=== PATIENT | male | born 1945 | race Caucasian/White ===

== ENCOUNTER 2023-03-17 20:21 | Observation (INO) | payer MEDICARE, BC, SELFPAY ==
[2023-03-17] VITALS (21 sets, daily range): BP systolic 129–198; BP diastolic 77–111; PULSE 96–113; RESP 24; TEMP 37.4; O2SAT 88–95
--- NOTE | 2023-03-17 21:01 | CRLHL7_ITS ---
For Patients: As a result of the Cures Act, medical imaging exams and procedure reports are released immediately into your electronic medical record. You may view this report before your referring provider. If you have questions, please contact your health care provider. INDICATION: Fall. TECHNIQUE: CT cervical spine without contrast. COMPARISON: None. FINDINGS: Vertebrae: Alignment is normal. There are no fractures or suspicious bony lesions. Discs and facet joints: Moderate intervertebral disc height loss at C6-7 with tiny marginal osteophyte formation. Mild to moderate multilevel bilateral facet arthrosis. Extraspinal findings: Prevertebral soft tissues, visualized airway, and visualized lungs are unremarkable. Degenerative changes of the temporomandibular joints. Atherosclerotic disease. IMPRESSION: No acute bony abnormality of the cervical spine. Please note that all CT scans at this facility use dose modulation, iterative reconstruction, and/or weight-based dosing when appropriate to reduce radiation dose to as low as reasonably achievable. Dictated by Sukhi López MD @ 03/17/2023 10:15:34 PM (Electronically Signed)
--- NOTE | 2023-03-17 21:01 | ED_ITS ---
HPI - Fall General Time Seen by Provider: 21:01 Date Seen: 03/17/23 Chief Complaint: Fall/Minor Trauma Stated Complaint: fall, covid+ Time Seen by Provider: 03/17/23 20:48 Source: patient, RN notes reviewed and old records reviewed Mode of arrival: EMS Limitations: no limitations History of Present Illness HPI Narrative: Fei is a 77-year-old male with history of COPD, hypertension, chronic pain, recent COVID illness treated with Paxlovid who comes to the emergency room via EMS after a fall. Patient notes that he was outside, slipped on the ice fell and injured his left lower back and right upper shoulder. He states that his neck hurts somewhat but denies hitting his head. He did not experience any loss of consciousness. States he had delay therefore a bit to make sure that he was not significantly injured but notes that now he cannot move because of the pain. He also notes that he has an injury with skin tears on his left elbow and right calf. Again, denies loss of consciousness or hitting his head. In regards to his COVID he notes that he is actually doing better after having taken Paxlovid. EMS was called and he did receive fentanyl 25 mcg for discomfort as well as a DuoNeb. At this time he would like some more pain medication but states to me that ?[place] almost killed me with pain medications that they gave me last year?. Upon further discussion this sounds like he received in his opinion too much of the medication rather than an anaphylactic reaction to 1 medication alone. He does think that morphine would be helpful. No visual changes, chest pain. He is currently experiencing what he describes as cramps in the lower back. No loss of bowel or bladder control. Related Data Home Medications Medication Instructions Recorded Confirmed albuterol sulfate 90 mcg/actuation 2 puff inhalation Q4H PRN 03/17/23 03/17/23 aerosol inhaler allopurinol 300 mg tablet 300 mg PO QPM 03/17/23 03/17/23 gabapentin 300 mg capsule 300 mg PO QPM neuropathic pain 03/17/23 03/17/23 lisinopril 5 mg tablet 5 mg PO DAILY 03/17/23 03/17/23 omeprazole 20 mg capsule,delayed 20 mg PO DAILY 03/17/23 03/17/23 release prednisone 10 mg tablet 10 mg PO DAILY 03/17/23 03/17/23 Allergies Allergy/AdvReac Type Severity Reaction Status Date / Time Sulfa (Sulfonamide Allergy Unknown Verified 03/17/23 20:35 Antibiotics) Review of Systems Status of ROS: Reports: 10 or more systems reviewed and unremarkable except as noted in History and below Const: Reports: fatigue; Denies: fever Eyes: Denies: change in vision or blurry vision ENMT: Reports: neck pain (Left trapezial area) and nasal congestion; Denies: difficulty swallowing Cardio: Denies: chest pain or swelling of feet/ankles Resp: Reports: cough and wheezing GI: Reports: abdominal pain (Left side); Denies: vomiting, diarrhea or difficulty swallowing : Denies: painful urination Musculo: Reports: back pain, neck pain (Left trapezial area) and extremity pain Neuro: Denies: headache, weakness in extremities or slurred speech Endo: Reports: fatigue Allergy/Immuno: Reports: wheezing Exam Narrative: Exam Narrative: GCS of 15. Patient is alert and oriented. Improvement in lower extremity discomfort with positioning of blanket under knees. EOM is full. Head is atraumatic normocephalic. Tenderness noted along the upper right trapezial area. No midline cervical tenderness noted. Range of motion is intact. Heart with a tachycardic rate that improves with thing creasing comfort. Heart rate is regular. Lungs are with main airway sounds wheezing noted. O2 sats 94% at this time. Abdomen is soft. There appears to be some tenderness on the lateral lower aspect of the abdomen which is protrude her I do not note any ecchymosis at this time. Lower extremities show movement. Sensation is fully intact. Large skin tear approximately 2-1/2 x 2 and 0.5 cm on right calf. Patient is able to move all extremities but very guarded in movement given the pain. Const: Vital Signs, click to edit/add: Vital Signs - 24 hr 03/17/23 20:35 03/17/23 20:57 03/17/23 21:00 Temperature 99.3 F Pulse Rate 109 H 109 H Pulse Rate [Pulse Oximeter] 100 Respiratory Rate 24 Blood Pressure Blood Pressure [Ri ght Upper Arm] 198/111 H Pulse Oximetry 95 94 94 Oxygen Delivery Me thod Room Air 03/17/23 21:02 03/17/23 21:10 01/22/24 21:15 Temperature Pulse Rate 110 H 113 H Pulse Rate [Pulse Oximeter] Respiratory Rate Blood Pressure 165/99 H Blood Pressure [Ri ght Upper Arm] Pulse Oximetry 94 93 92 Oxygen Delivery Me thod 03/17/23 21:20 03/17/23 21:30 03/17/23 21:31 Temperature Pulse Rate 108 H 108 H Pulse Rate [Pulse Oximeter] Respiratory Rate Blood Pressure 129/87 Blood Pressure [Ri ght Upper Arm] Pulse Oximetry 91 91 90 Oxygen Delivery Me thod 03/17/23 21:54 03/17/23 22:00 03/17/23 22:01 Temperature Pulse Rate 101 H 101 H 102 H Pulse Rate [Pulse Oximeter] Respiratory Rate Blood Pressure 156/82 H Blood Pressure [Ri ght Upper Arm] Pulse Oximetry 93 91 90 Oxygen Delivery Me thod 03/17/23 22:02 03/17/23 22:10 03/17/23 22:15 Temperature Pulse Rate 100 99 Pulse Rate [Pulse Oximeter] Respiratory Rate Blood Pressure Blood Pressure [Ri ght Upper Arm] Pulse Oximetry 91 88 91 Oxygen Delivery Me thod 03/17/23 22:30 03/17/23 22:31 03/17/23 22:32 Temperature Pulse Rate 98 99 98 Pulse Rate [Pulse Oximeter] Respiratory Rate Blood Pressure 139/78 Blood Pressure [Ri ght Upper Arm] Pulse Oximetry 90 91 94 Oxygen Delivery Me thod Documenting provider has reviewed patient's vital signs: yes Course Course ED Course: Differential diagnosis includes cervical injury, rib fracture, spinal fracture, intra-abdominal bleeding, soft tissue injury. At this time patient's O2 sats are within normal limits. We will obtain CT of the cervical spine, chest abdomen and pelvis. My initial plan was to use contrast for both chest abdomen and pelvis but given creatinine of 2.0 will hold off on this time and use noncontrast. Patient receptive to morphine 4 mg and Zofran 4 mg for pain control. Reevaluation(s) Reevaluation #1: Patient did have relief with morphine. He notes pain is returning. Will use oxycodone 5 mg at this time along with Colace as a stool softener. Consultations Consultation #1: I had the pleasure of speaking with Dr. Ibrahim who is an orthopedic speed [employer] online merchandising specialist at [facility]. We were able to push the CT images over to [facility] where they were reviewed. Dr. Ibrahim feels that the appearance of L5 is likely a chronic finding. However, if it is acute he does not feel in light of a normal exam that there is anything more they would do tonight. Further suggestions in assessment and plan. Vital Signs Vital signs: Initial Vital Signs Temperature 99.3 F 03/17/23 20:35 Temperature Source Temporal Artery Scan 03/17/23 20:35 Pulse Rate 100 03/17/23 20:35 Respiratory Rate 24 03/17/23 20:35 Blood Pressure 198/111 H 03/17/23 20:35 Blood Pressure Mean 140 H 03/17/23 20:35 Blood Pressure Position Supine 03/17/23 20:35 Pulse Oximetry 95 03/17/23 20:35 Oxygen Delivery Method Room Air 03/17/23 20:35 Vital Signs Temperature 99.3 F 03/17/23 20:35 Pulse Rate 100 03/17/23 20:35 Respiratory Rate 24 03/17/23 20:35 Blood Pressure 198/111 H 03/17/23 20:35 Pulse Oximetry 95 03/17/23 20:35 Oxygen Delivery Method Room Air 03/17/23 20:35 Temperature 99.3 F 03/17/23 20:35 Pulse Rate 98 03/17/23 22:32 Respiratory Rate 24 03/17/23 20:35 Blood Pressure 139/78 03/17/23 22:31 Pulse Oximetry 94 03/17/23 22:32 Oxygen Delivery Method Room Air 03/17/23 20:35 MDM - Fall MDM Narrative Medical decision making narrative: 1. Left 9th and 10th rib fractures-at this time no evidence of effusion. Patient maintains his oxygenation. Initially pain was treated with fentanyl by EMS and morphine here in the ER. We will switch him over to orals and I have give it given him 5 mg of oral oxycodone. 2. L5 fracture-this is indeterminate in age according to Radiology and my discussion with the online merchandising specialist at [facility]. I did ask if an MRI would be helpful but he did not feel that this would change director. He does suggest however that prior to patient departure and discharge from [facility] that he have a standing AP and lateral of the lumbar spine as a baseline. Then follow-up with a non operative online merchandising specialist at [facility] would be suggested. Calcitonin may be used for discomfort if needed. Finally, a brace was discussed. This would be for comfort if it does indeed help and would only need to be worn when up and about. 3. COVID-patient has completed his Paxlovid dosing. His O2 sats are 94-95% on room air. Chest x-ray without evidence of pneumonia. 4. Osteoporosis-spinal surgeon noted significant loss of bone density. Patient currently on prednisone. It is suggested the patient follow-up with Bone endocrine at [facility] given the degree of bone thinning that he is seeing. 5. Disposition-admission at this time under the care of [facility] [place] Dr. Da Silva. Note other labs include white count elevated at 15.22, creatinine of 1.7 with no repeat previous value for comparison, CRP of 0.9 and troponin which is negative at 0.02. Patient had no complaints of anterior chest pain. Medical Records Attestation: I reviewed the patient's medical records. Lab Data Attestation: I reviewed the patient's lab results. Labs: Lab Results 03/17/23 03/17/23 Range/Units 21:01 21:15 WBC 15.22 H (4.50-11.00) K/uL RBC 3.55 L (4.30-5.90) m/uL Hgb 11.1 L (13.5-17.5) gm/dL Hct 34.6 L (37.0-53.0) % MCV 98 (80-100) fL MCH 31 (26-34) pg MCHC 32 (32-36) gm/dL RDW Coeff of Dana 14.6 (11.5-15.5) % Plt Count 297 (140-440) K/uL Neut % (Auto) 84.7 H (42.0-72.0) % Lymph % (Auto) 6.7 L (20-44) % Louisa % (Auto) 7.2 (0.0-11.0) % Eos % (Auto) 0.0 (0.0-7.0) % Baso % (Auto) 0.1 (0.0-3.0) % Neut # (Auto) 12.90 H (1.7-7.0) K/uL Lymph # (Auto) 1.00 (0.90-2.90) K/uL Louisa # (Auto) 1.10 H (0.00-0.90) K/UL Eos # (Auto) 0.00 (0.00-0.50) K/uL Baso # (Auto) 0.00 (0.00-0.30) K/uL Abs Immat Gran (auto) 0.20 (0.00-0.30) K/uL Imm/Tot Granulo (auto) 1.3 % Sodium 137 (135-149) mmol/L Potassium 4.8 (3.6-5.1) mmol/L Chloride 106 (96-114) mmol/L Carbon Dioxide 22 (20-32) mmol/L Anion Gap 9 (7-15) mEq/L BUN 34 H (7-30) mg/dL Creatinine 1.7 H (0.5-1.5) mg/dL Estimated GFR 41 ml/min Glucose 127 H (60-115) mg/dL Calcium 8.4 (8.4-10.6) mg/dL Total Bilirubin 0.2 (0.1-1.5) mg/dL AST 27 (12-35) U/L ALT 24 (4-50) U/L Alkaline Phosphatase 51 (40-150) U/L C-Reactive Protein 0.9 (0.5-1.0) mg/dL Total Protein 7.0 (6.0-8.3) g/dL Albumin 4.2 (3.3-5.0) g/dL POC Troponin I 0.02 (0.01-0.04) ng/ml Imaging Data Cervical spine CT: Attestation: I have reviewed the pertinent imaging results. My impression: No obvious fracture Radiologist's impression: Vertebrae: Alignment is normal. There are no fractures or suspicious bony lesions. Discs and facet joints: Moderate intervertebral disc height loss at C6-7 with tiny marginal osteophyte formation. Mild to moderate multilevel bilateral facet arthrosis. Extraspinal findings: Prevertebral soft tissues, visualized airway, and visualized lungs are unremarkable. Degenerative changes of the temporomandibular joints. Atherosclerotic disease. IMPRESSION: No acute bony abnormality of the cervical spine. CT Chest/Ab/Pelvis: Attestation: I have reviewed the pertinent imaging results. Radiologist's impression: Cardiovascular structures: Heart size is normal. Thoracic aorta and main pulmonary artery are normal in caliber. Coronary artery and thoracic aorta atherosclerotic calcification. Mediastinum and héctor: No adenopathy or mass. Moderate-sized hiatal hernia. Lungs and pleura: Mild bilateral lower lobe atelectasis. No pleural effusion or pneumothorax. No suspicious nodule. Chest wall and axilla: No mass or adenopathy. Bones: Old right 4th through 6th rib fractures. Old left 4th and 5th rib fractures. Acute, mildly displaced left lateral 9th and 10th rib fractures. ABDOMEN AND PELVIS: Liver: Unremarkable. Gallbladder and bile ducts: Unremarkable. Pancreas: Unremarkable. Spleen: Unremarkable. Adrenal glands: Unremarkable. Kidneys, Ureters, and Bladder: Multiple bilateral simple renal cysts, the largest measuring 8.1 cm in the left kidney. The kidneys are mild atrophic bilaterally. No stone. Unremarkable ureters and urinary bladder. GI tract: Diverticulosis without pericolonic inflammation. No obstruction. Vascular structures: Severe atherosclerotic disease with severe stenosis of the proximal right common iliac artery. No aneurysm. Lymph nodes: Unremarkable. Miscellaneous: Unremarkable. No free air or significant free fluid. Pelvic Organs: Unremarkable. Bones: Age-indeterminate mild superior endplate compression fracture of L5 with 3 mm retropulsion of the superior posterior cortex into the spinal canal. Otherwise, unremarkable for age. IMPRESSION: 1. Acute, mildly displaced left lateral 9th and 10th rib fractures. 2. Age-indeterminate mild superior endplate compression fracture of L5 with 3 mm retropulsion of the superior posterior cortex into the spinal canal. Recommend correlation with site for focal tenderness. 3. No other evidence for acute traumatic injury within the chest, abdomen, or pelvis on this noncontrast exam. 4. 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 ECG Data Attestation: I personally reviewed and interpreted this ECG as follows: ECG interpretation date: 03/17/23 Interpretation: EKG by my read shows sinus tachycardia rate of 103. Nonspecific ST and T-wave abnormality. Discharge Plan Discharge Prescriptions: No Action prednisone 10 mg tablet 10 mg PO DAILY gabapentin 300 mg capsule 300 mg PO QPM omeprazole 20 mg capsule,delayed release(DR/EC) 20 mg PO DAILY allopurinol 300 mg tablet 300 mg PO QPM lisinopril 5 mg tablet 5 mg PO DAILY albuterol sulfate 90 mcg/actuation HFA aerosol inhaler 2 puff INHALATION Q4H PRN Follow Up/Referrals: Provider,Not a Local [Primary Care Provider] -
--- NOTE | 2023-03-17 21:01 | CRLHL7_ITS ---
For Patients: As a result of the Century Cures Act, medical imaging exams and procedure reports are released immediately into your electronic medical record. You may view this report before your referring provider. If you have questions, please contact your health care provider. INDICATION: Fall. TECHNIQUE: CT chest, abdomen and pelvis acquired without contrast. COMPARISON: None. FINDINGS: CHEST: Cardiovascular structures: Heart size is normal. Thoracic aorta and main pulmonary artery are normal in caliber. Coronary artery and thoracic aorta atherosclerotic calcification. Mediastinum and héctor: No adenopathy or mass. Moderate-sized hiatal hernia. Lungs and pleura: Mild bilateral lower lobe atelectasis. No pleural effusion or pneumothorax. No suspicious nodule. Chest wall and axilla: No mass or adenopathy. Bones: Old right 4th through 6th rib fractures. Old left 4th and 5th rib fractures. Acute, mildly displaced left lateral 9th and 10th rib fractures. ABDOMEN AND PELVIS: Liver: Unremarkable. Gallbladder and bile ducts: Unremarkable. Pancreas: Unremarkable. Spleen: Unremarkable. Adrenal glands: Unremarkable. Kidneys, Ureters, and Bladder: Multiple bilateral simple renal cysts, the largest measuring 8.1 cm in the left kidney. The kidneys are mild atrophic bilaterally. No stone. Unremarkable ureters and urinary bladder. GI tract: Diverticulosis without pericolonic inflammation. No obstruction. Vascular structures: Severe atherosclerotic disease with severe stenosis of the proximal right common iliac artery. No aneurysm. Lymph nodes: Unremarkable. Miscellaneous: Unremarkable. No free air or significant free fluid. Pelvic Organs: Unremarkable. Bones: Age-indeterminate mild superior endplate compression fracture of L5 with 3 mm retropulsion of the superior posterior cortex into the spinal canal. Otherwise, unremarkable for age. IMPRESSION: 1. Acute, mildly displaced left lateral 9th and 10th rib fractures. 2. Age-indeterminate mild superior endplate compression fracture of L5 with 3 mm retropulsion of the superior posterior cortex into the spinal canal. Recommend correlation with site for focal tenderness. 3. No other evidence for acute traumatic injury within the chest, abdomen, or pelvis on this noncontrast exam. 4. 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 Please note that all CT scans at this facility use dose modulation, iterative reconstruction, and/or weight-based dosing when appropriate to reduce radiation dose to as low as reasonably achievable. Dictated by Sukhi López MD @ 03/17/2023 10:26:50 PM (Electronically Signed)
[2023-03-17] MEDS: ONDANSETRON 2 MG/ML inj 4 MG IVP (21:30)
[2023-03-17] MEDS: MORPHINE 4 MG/ML INJ IVP (21:30)
[2023-03-17] MEDS: 0.9 % SODIUM CHLORIDE 250 ml 250 ML IV (21:30)
[2023-03-17 21:31] LABS: Troponin, Point-of-Care* 0.02 ng/ml (0.01-0.04)
[2023-03-17 21:37] LABS: Basophils Percent Auto 0.1 % (0.0-3.0); Hematocrit 34.6 % (37.0-53.0); Hemoglobin* 11.1 gm/dL (13.5-17.5); Immature Granulocytes Pct Auto 1.3 %; Lymphocytes Percent Auto 6.7 % (20-44); Mean Corpuscular HGB Conc 32 gm/dL (32-36); Mean Corpuscular Hemoglobin 31 pg (26-34); Mean Corpuscular Volume 98 fL (80-100); Monocytes Percent Auto 7.2 % (0.0-11.0); Neutrophils Percent Auto 84.7 % (42.0-72.0); Platelet Count* 297 K/uL (140-440); RDW Coefficient of Variation % 14.6 % (11.5-15.5); Red Blood Count 3.55 m/uL (4.30-5.90); White Blood Count* 15.22 K/uL (4.50-11.00)
[2023-03-17 21:41] LABS: Slide Review Reflex No
[2023-03-17 21:52] LABS: Albumin* 4.2 g/dL (3.3-5.0); Chloride* 106 mmol/L (96-114); Sodium* 137 mmol/L (135-149)
[2023-03-17 21:53] LABS: Potassium* 4.8 mmol/L (3.6-5.1)
[2023-03-17 21:55] LABS: Alanine Aminotransferase* 24 U/L (4-50); Alkaline Phosphatase* 51 U/L (40-150); Anion Gap 9 mEq/L (7-15); Aspartate Amino Transferase* 27 U/L (12-35); Bilirubin Total* 0.2 mg/dL (0.1-1.5); Blood Urea Nitrogen* 34 mg/dL (7-30); Carbon Dioxide* 22 mmol/L (20-32); Creatinine* 1.7 mg/dL (0.5-1.5); Estimated Glomerular Filt Rate 41 ml/min
[2023-03-17 21:56] LABS: Calcium* 8.4 mg/dL (8.4-10.6); Glucose* 127 mg/dL (60-115)
[2023-03-17 21:58] LABS: C Reactive Protein* 0.9 mg/dL (0.5-1.0)
--- NOTE | 2023-03-17 23:10 | ED.NURSE ---
Pt's has been updated that pt will be a transfer to another facility but at this point we do not know what facility. She will be updated later this morning as to where he will be transferring too. aware of plan of care and will wait for phone call from [place].
[2023-03-18] VITALS (17 sets, daily range): BP systolic 134–189; BP diastolic 78–99; PULSE 90–105; RESP 18–22; TEMP 36.6–36.9; O2SAT 90–95; BMI 29.9
[2023-03-18] MEDS: OXYCODONE 5 MG TABLET PO ×6 (01:08→20:40)
--- NOTE | 2023-03-18 01:13 | ED.NURSE ---
pt updated on pt staying the night on med surg.
--- NOTE | 2023-03-18 04:48 | W.PM.THH&P_ITS ---
Telehealth- H&P: HPI History of Present Illness Date Seen: 03/18/23 Chief complaint: fall, covid+ Narrative: Fei Quiñones is seen as an Interactive Telehealth visit. Fei Quiñones is a 77 year old male with rheumatoid arthritis on prednisone and Simponi infusions every 2 months, CKD stage III, COPD, hypertension who presented to the ER after a fall at home. Receives most of his medical care through the [facility]. He reports that he fell down 4-5 steps outside his home and onto the sidewalk because of the ice on the steps. He denies head injury or loss of consciousness and is not on blood thinners. He was recently diagnosed with COVID-19 and finished 5 days of Paxlovid yesterday. On arrival to the ER, he complained of pain to the right shoulder, low back and left-sided rib cage. He typically has pain in multiple joints despite treatments for RA. ER assessment: Imaging shows fractures of ribs 9 and 10 on the left as well as L5 compression fracture without impingement or symptoms of cauda equina. Results were reviewed with spinal orthopedics in [place] who indicated the compression fracture was not acute, age-indeterminate. They recommended admission for therapies and pain management. Review of Systems Status of ROS: Reports: 10 or more systems reviewed and unremarkable except as noted in History and below PFSH [facility] Social History What is your current living situation?: I presently have a place to live Problems where you live: no known problems Problems where you live details: n/a In the past 12 months, utilities in danger of being shut off: no In past 12 months, lack of transportation kept you from medical appts, meetings, work, or getting things needed for daily living: no In the past 12 mos, have been you worried that your food would run out before you had money to buy more?: never true In the past 12 mos, the food you bought just didn't last and you didn't have money to buy more?: never true Highest level of school completed/degree received: Bachelor's degree Smoking Status: Former smoker How often do you have a drink containing alcohol: never AUDIT-C Alcohol total score: 0 Non-prescribed substance use: marijuana (any form) Caffeine: No How often does anyone, including family, friends and others, physically hurt you : never How often does anyone, including family, friends and others, insult or talk down to you: never How often does anyone, including family, friends and others, threaten you with harm: never How often does anyone, including family, friends and others, scream or curse at you: never service: Yes Meds Home Medications and Allergies Home Medications Medication Instructions Recorded Confirmed Type albuterol sulfate 90 mcg/actuation 2 puff inhalation Q4H PRN 03/17/23 03/17/23 History aerosol inhaler allopurinol 300 mg tablet 300 mg PO QPM 03/17/23 03/17/23 History gabapentin 300 mg capsule 300 mg PO QPM neuropathic pain 03/17/23 03/17/23 History lisinopril 5 mg tablet 5 mg PO DAILY 03/17/23 03/17/23 History omeprazole 20 mg capsule,delayed 20 mg PO DAILY 03/17/23 03/17/23 History release prednisone 10 mg tablet 10 mg PO DAILY 03/17/23 03/17/23 History Allergies Allergy/AdvReac Type Severity Reaction Status Date / Time Sulfa (Sulfonamide Allergy Unknown Verified 03/17/23 20:35 Antibiotics) Exam Narrative Exam Narrative: Physical Exam GENERAL: Elderly male, alert, no active distress HEENT: pupils are equal round and reactive to light, extraocular movements are grossly within normal limits and oral mucosa is somewhat dry. NECK: Supple with Bilateral submandibular lymphadenopathy according to nursing staff examination observation, right greater than left which the patient states is chronic. HEART: Regular rate and rhythm without any rubs, murmurs or gallops. LUNGS: Faint left-sided wheeze otherwise breath sounds are clear, not tachypneic on room air ABDOMEN: Observation from nurse assisted exam, abdomen appears soft, tender with palpation on the left near rib fractures otherwise nontender, and nondistended with Positive bowel sounds noted. EXTREMITIES: Strength and sensation is observed to be grossly within normal limits in the upper and lower extremities. No focal strength deficit is observed SKIN: Observed warm and dry with color normal. Skin tears noted on the right calf and left elbow NEURO: Alert, awake and oriented ?3. Answers all questions appropriately. No focal neuro deficits are noted. PSYCH: Affect normal Const Vital Signs, click to edit/add: Vital Signs - 24 hr 03/17/23 20:35 03/17/23 20:57 03/17/23 21:00 Temperature 99.3 F Pulse Rate 109 H 109 H Pulse Rate [Pulse Oximeter] 100 Respiratory Rate 24 Blood Pressure Blood Pressure [Right Arm] Blood Pressure [Right Upper Arm] 198/111 H Pulse Oximetry 95 94 94 Oxygen Delivery Method Room Air 03/17/23 21:02 03/17/23 21:10 03/17/23 21:15 Temperature Pulse Rate 110 H 113 H Pulse Rate [Pulse Oximeter] Respiratory Rate Blood Pressure 165/99 H Blood Pressure [Right Arm] Blood Pressure [Right Upper Arm] Pulse Oximetry 94 93 92 Oxygen Delivery Method 03/17/23 21:20 03/17/23 21:30 03/17/23 21:31 Temperature Pulse Rate 108 H 108 H Pulse Rate [Pulse Oximeter] Respiratory Rate Blood Pressure 129/87 Blood Pressure [Right Arm] Blood Pressure [Right Upper Arm] Pulse Oximetry 91 91 90 Oxygen Delivery Method 03/17/23 21:54 03/17/23 22:00 03/17/23 22:01 Temperature Pulse Rate 101 H 101 H 102 H Pulse Rate [Pulse Oximeter] Respiratory Rate Blood Pressure 156/82 H Blood Pressure [Right Arm] Blood Pressure [Right Upper Arm] Pulse Oximetry 93 91 90 Oxygen Delivery Method 03/17/23 22:02 03/17/23 22:10 03/17/23 22:15 Temperature Pulse Rate 100 99 Pulse Rate [Pulse Oximeter] Respiratory Rate Blood Pressure Blood Pressure [Right Arm] Blood Pressure [Right Upper Arm] Pulse Oximetry 91 88 91 Oxygen Delivery Method 03/17/23 22:30 03/17/23 22:31 03/17/23 22:32 Temperature Pulse Rate 98 99 98 Pulse Rate [Pulse Oximeter] Respiratory Rate Blood Pressure 139/78 Blood Pressure [Right Arm] Blood Pressure [Right Upper Arm] Pulse Oximetry 90 91 94 Oxygen Delivery Method 03/17/23 23:01 03/17/23 23:31 03/17/23 23:45 Temperature Pulse Rate 97 97 96 Pulse Rate [Pulse Oximeter] Respiratory Rate Blood Pressure 136/88 142/77 H Blood Pressure [Right Arm] Blood Pressure [Right Upper Arm] Pulse Oximetry 91 89 95 Oxygen Delivery Method 03/18/23 00:01 03/18/23 00:15 03/18/23 00:30 Temperature Pulse Rate 96 95 92 Pulse Rate [Pulse Oximeter] Respiratory Rate Blood Pressure 139/82 Blood Pressure [Right Arm] Blood Pressure [Right Upper Arm] Pulse Oximetry 90 91 95 Oxygen Delivery Method 03/18/23 00:31 03/18/23 00:45 03/18/23 01:00 Temperature Pulse Rate 94 99 97 Pulse Rate [Pulse Oximeter] Respiratory Rate Blood Pressure 134/84 Blood Pressure [Right Arm] Blood Pressure [Right Upper Arm] Pulse Oximetry 92 94 93 Oxygen Delivery Method 03/18/23 01:01 03/18/23 01:15 03/18/23 01:30 Temperature Pulse Rate 98 97 96 Pulse Rate [Pulse Oximeter] Respiratory Rate Blood Pressure 151/91 H Blood Pressure [Right Arm] Blood Pressure [Right Upper Arm] Pulse Oximetry 94 91 92 Oxygen Delivery Method 03/18/23 01:31 03/18/23 03:24 Temperature 98.0 F Pulse Rate 93 Pulse Rate [Pulse Oximeter] 103 H Respiratory Rate 20 Blood Pressure 152/78 H Blood Pressure [Right Arm] 189/90 H Blood Pressure [Right Upper Arm] Pulse Oximetry 93 91 Oxygen Delivery Method Room Air Hospitalist - H&P: Result Labs Labs: Short CBC 03/17/23 Range/Units 21:15 WBC 15.22 H (4.50-11.00) K/uL Hgb 11.1 L (13.5-17.5) gm/dL Hct 34.6 L (37.0-53.0) % Plt Count 297 (140-440) K/uL BMP 03/17/23 21:15 Sodium 137 Potassium 4.8 Chloride 106 Carbon Dioxide 22 BUN 34 H Creatinine 1.7 H Glucose 127 H Calcium 8.4 Liver Function 03/17/23 Range/Units 21:15 Total Bilirubin 0.2 (0.1-1.5) mg/dL AST 27 (12-35) U/L ALT 24 (4-50) U/L Alkaline Phosphatase 51 (40-150) U/L Albumin 4.2 (3.3-5.0) g/dL Imaging CT chest abdomen and pelvis without IV contrast: Radiologist's impression: 1. Acute, mildly displaced left lateral 9th and 10th rib fractures. 2. Age-indeterminate mild superior endplate compression fracture of L5 with 3 mm retropulsion of the superior posterior cortex into the spinal canal. Recommend correlation with site for focal tenderness. 3. No other evidence for acute traumatic injury within the chest, abdomen, or pelvis on this noncontrast exam. 4. 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 CT cervical spine: Radiologist's impression: No acute bony abnormality of the cervical spine. Assessment and Plan Assessment and plan (1) Lumbar compression fracture: Status: Acute (2) Rib fractures: Status: Acute (3) HTN (hypertension): Status: Acute (4) CKD (chronic kidney disease), stage III: Status: Acute (5) COPD (chronic obstructive pulmonary disease): Status: Acute (6) Rheumatoid arthritis: Status: Acute Plan Fall with fracture of left ninth and 10th ribs Lumbar compression fracture of L5 vertebrae Imaging results reviewed by [place] [facility]. Compression fracture is age-indeterminate but not acute. Minimal retropulsion, no impingement. -Admit to observation status for pain control. -Acetaminophen 1000 mg 3 times daily, oxycodone as needed for moderate to severe pain -Cyclobenzaprine as needed for muscle spasm -Topical heat as desired, Lidoderm patches -Incentive spirometry, okay for patient to continue using aerobika he brought from home -PT/OT assessments Note: [place] [facility] recommend standing AP and lateral of the lumbar spine prior to discharge Rheumatoid arthritis On chronic prednisone and Simponi infusions with probable underlying related osteopenia/osteoporosis. Pain of multiple joints at baseline. -Continue chronic therapies pending [facility] rec, [facility] follow-up Other medical issues: Hypertension: Continue home medications, BP trend stable on admission CKD stage III: Creatinine 1.7 is likely near baseline. Avoid NSAIDs, monitor renal function and electrolytes. COPD: Albuterol inhaler as needed DVT prophylaxis: SCDs, observation status I have addressed Code Status with the patient and he does desire NO CODE BLUE. This will be ordered as per his wishes. Telehealth Visit: Today's History and Physical is provided via interactive telehealth by Stanley Da Silva DO. Patient is located at [facility]. Provider is located at [facility]. Nursing staff assisted with the patient's exam. The visit being done today meets criteria for a telehealth visit and the patient or patient?s parent/guardian is aware the visit is a telehealth visit. Camera Start Time: 3:22 AM Camera End Time: 3:40 AM Medical Complexity: moderate Telehealth: Statement Statement Telehealth Visit: Today's History and Physical is provided via interactive telehealth by Stanley Da Silva DO.? Patient is located at [facility].? Provider is located at [facility].? Nursing staff assisted with the patient's exam. The visit being done today meets criteria for a telehealth visit and the patient or patient?s parent/guardian is aware the visit is a telehealth visit.
[2023-03-18] MEDS: CYCLOBENZAPRINE HCL 10 MG TABLET PO ×3 (05:12→20:40)
--- NOTE | 2023-03-18 06:48 | PC.NURSE ---
Patient admitted to the unit at 0200 for pain control after a fall at home. A&Ox3. Not able to tolerate movement d/t back and L. rib pain 7-9/10. Nurse made x3 calls to remote pharmacy for medication verification. Patient was experiencing 9/10 pain and verbalized extreme discomfort. PRN Flexeril and Oxycodone administered once verified. Patient declined Lidocaine patch I won't be able to tolerate turning over. Using urinal.
[2023-03-18] MEDS: ACETAMINOPHEN 500 MG TABLET 1000 MG PO ×2 (08:59→19:58)
[2023-03-18] MEDS: SODIUM CHLORIDE 0.9 % (FLUSH) 10 ML SYRINGE 5 ML IVF ×2 (08:59→19:59)
[2023-03-18 09:44] LABS: Basophils Percent Auto 0.1 % (0.0-3.0); Eosinophils Percent Auto 0.1 % (0.0-7.0); Hematocrit 36.1 % (37.0-53.0); Hemoglobin* 11.2 gm/dL (13.5-17.5); Immature Granulocytes Pct Auto 0.7 %; Lymphocytes Percent Auto 14.7 % (20-44); Mean Corpuscular HGB Conc 31 gm/dL (32-36); Mean Corpuscular Hemoglobin 31 pg (26-34); Mean Corpuscular Volume 100 fL (80-100); Monocytes Percent Auto 9.3 % (0.0-11.0); Neutrophils Percent Auto 75.1 % (42.0-72.0); Platelet Count* 248 K/uL (140-440); RDW Coefficient of Variation % 14.8 % (11.5-15.5); White Blood Count* 14.02 K/uL (4.50-11.00)
[2023-03-18 09:49] LABS: Chloride* 105 mmol/L (96-114); Potassium* 5.2 mmol/L (3.6-5.1); Slide Review Reflex No; Sodium* 138 mmol/L (135-149)
[2023-03-18 09:52] LABS: Anion Gap 9 mEq/L (7-15); Blood Urea Nitrogen* 31 mg/dL (7-30); Carbon Dioxide* 24 mmol/L (20-32); Creatinine* 1.5 mg/dL (0.5-1.5); Est. Creatinine Clearance* 36.44; Estimated Glomerular Filt Rate 48 ml/min
[2023-03-18 09:53] LABS: Calcium* 8.6 mg/dL (8.4-10.6); Glucose* 110 mg/dL (60-115)
[2023-03-18] MEDS: predniSONE 10 MG TABLET PO (10:27)
[2023-03-18] MEDS: lisinopriL 5 MG TABLET PO (10:27)
--- NOTE | 2023-03-18 11:32 | PM.IMPN1 ---
Progress Note: A&P Assessment and plan (1) Rib fractures: Problem details: -s/p slip on icy steps -left rib 9-10 fractures. Of note, remote h/o right rib fractures requiring hospitalization -ED provider discussed with [place] [facility], recommended admission for therapies and pain management -lidocaine patch, scheduled Tylenol, oxycodone p.r.n., hydroxyzine p.r.n.. Patient reports feeling loopy during previous hospitalization for fractured ribs and receiving IV narcotics so would recommend avoiding those for now. Senna b.i.d. -incentive spirometry, Aerobika -PT/OT consults Status: Acute (2) COVID-19: Problem details: -recent diagnosis, finished 5 day course of Paxlovid on 03/16/2023. Symptomatic cares Status: Acute (3) Lumbar compression fracture: Problem details: -indeterminate age, not thought to be acute, symptomatic cares Status: Chronic (4) HTN (hypertension): Problem details: -continue lisinopril Status: Acute (5) CKD (chronic kidney disease), stage III: Problem details: -creatinine 1.5, improved from 1.7 on admission -avoid nephrotoxic medications, continue to monitor Status: Chronic (6) Rheumatoid arthritis: Problem details: -probable underlying related osteopenia/osteoporosis. Baseline multiple joint pain -continue chronic daily prednisone, home gabapentin. Also receives Simponi infusions Status: Chronic (7) COPD (chronic obstructive pulmonary disease): Problem details: -stable, inhaler as needed Status: Chronic (8) Hyperkalemia: Problem details: -potassium 5.2 this morning, previously 4.8, recheck in a.m. Status: Acute Plan Pain management. PT/OT. Time Spent With Patient Total time spent: Total time spent caring for the patient today was 45 minutes. This includes time spent for the visit reviewing the chart, time spent during the visit, time spent after the visit and documentation and planning in coordination of care. Subjective Date Seen: 03/18/23 Interval history: Patient is seen this morning sitting upright in bed eating breakfast. Tells me he is still experiencing significant pain and cramping pain related to his rib fratures. He admits not moving much in an attempt to avoid pain. He is not sure how he will be able to work with PT or OT given his pain. Denies headache or dizziness. Denies chest pain or shortness of breath. Tolerating orals well without nausea vomiting. Patient tells me he was previously hospitalized for right rib fracture and had to be in hospital for 7 days. He also tells me he was very loopy while receiving IV narcotics. Exam Narrative: Exam Narrative: PHYSICAL EXAM General: Pleasant, conversant, NAD HEENT: Normocephalic, atraumatic, sclera white, EOMI, oral mucosa moist Cardiovascular: RRR, S1S2. No pitting edema Pulmonary: CTA bilaterally without rhonchi, rales, expiratory wheezes. No dyspnea Abdominal: Soft, nondistended, NTTP Neurological: Alert, answering questions appropriately, cranial nerves intact, no focal findings. Slightly anxious Extremities: No gross joint deformity or swelling. AROMI. Neurovascularly intact Skin: Warm, dry. Const: Vital Signs, click to edit/add: Vital Signs - 24 hr 03/17/23 20:35 03/17/23 20:57 03/17/23 21:00 Temperature 99.3 F Pulse Rate 109 H 109 H Pulse Rate [Pulse Oximeter] 100 Respiratory Rate 24 Blood Pressure Blood Pressure [Ri ght Arm] Blood Pressure [Ri ght Upper Arm] 198/111 H Pulse Oximetry 95 94 94 Oxygen Delivery Me od Room Air 03/17/23 21:02 03/17/23 21:10 03/17/23 21:15 Temperature Pulse Rate 110 H 113 H Pulse Rate [Pulse Oximeter] Respiratory Rate Blood Pressure 165/99 H Blood Pressure [Ri ght Arm] Blood Pressure [Ri ght Upper Arm] Pulse Oximetry 94 93 92 Oxygen Delivery Me thod 03/17/23 21:20 03/17/23 21:30 03/17/23 21:31 Temperature Pulse Rate 108 H 108 H Pulse Rate [Pulse Oximeter] Respiratory Rate Blood Pressure 129/87 Blood Pressure [Ri ght Arm] Blood Pressure [Ri ght Upper Arm] Pulse Oximetry 91 91 90 Oxygen Delivery Me thod 03/17/23 21:54 03/17/23 22:00 03/17/23 22:01 Temperature Pulse Rate 101 H 101 H 102 H Pulse Rate [Pulse Oximeter] Respiratory Rate Blood Pressure 156/82 H Blood Pressure [Ri ght Arm] Blood Pressure [Ri ght Upper Arm] Pulse Oximetry 93 91 90 Oxygen Delivery Me od 03/17/23 22:02 03/17/23 22:10 03/17/23 22:15 Temperature Pulse Rate 100 99 Pulse Rate [Pulse Oximeter] Respiratory Rate Blood Pressure Blood Pressure [Ri ght Arm] Blood Pressure [Ri ght Upper Arm] Pulse Oximetry 91 88 [facility] 03/17/23 22:30 03/17/23 22:31 03/17/23 22:32 Temperature Pulse Rate 98 99 98 Pulse Rate [Pulse Oximeter] Respiratory Rate Blood Pressure 139/78 Blood Pressure [Ri ght Arm] Blood Pressure [Ri ght Upper Arm] Pulse Oximetry 90 91 94 [facility] 03/17/23 23:01 03/17/23 23:31 03/17/23 23:45 Temperature Pulse Rate 97 97 96 Pulse Rate [Pulse Oximeter] Respiratory Rate Blood Pressure 136/88 142/77 H Blood Pressure [Ri ght Arm] Blood Pressure [Ri ght Upper Arm] Pulse Oximetry 91 89 95 [facility] 03/18/23 00:01 03/18/23 00:15 03/18/23 00:30 Temperature Pulse Rate 96 95 92 Pulse Rate [Pulse Oximeter] Respiratory Rate Blood Pressure 139/82 Blood Pressure [Ri ght Arm] Blood Pressure [Ri ght Upper Arm] Pulse Oximetry 90 91 95 [facility] 03/18/23 00:31 03/18/23 00:45 03/18/23 01:00 Temperature Pulse Rate 94 99 97 Pulse Rate [Pulse Oximeter] Respiratory Rate Blood Pressure 134/84 Blood Pressure [Ri ght Arm] Blood Pressure [Ri ght Upper Arm] Pulse Oximetry 92 94 93 [facility] 03/18/23 01:01 03/18/23 01:15 03/18/23 01:30 Temperature Pulse Rate 98 97 96 Pulse Rate [Pulse Oximeter] Respiratory Rate Blood Pressure 151/91 H Blood Pressure [Ri ght Arm] Blood Pressure [Ri ght Upper Arm] Pulse Oximetry 94 91 92 [facility] 03/18/23 01:31 03/18/23 03:24 03/18/23 05:31 Temperature 98.0 F Pulse Rate 93 Pulse Rate [Pulse Oximeter] 103 H Respiratory Rate 20 20 Blood Pressure 152/78 H Blood Pressure [Ri ght Arm] 189/90 H Blood Pressure [Ri ght Upper Arm] Pulse Oximetry 93 91 91 Oxygen Delivery Me thod Room Air Room Air 03/18/23 08:55 Temperature 98.1 F Pulse Rate Pulse Rate [Pulse Oximeter] 90 Respiratory Rate 20 Blood Pressure Blood Pressure [Ri ght Arm] 180/94 H Blood Pressure [Ri ght Upper Arm] Pulse Oximetry 93 Oxygen Delivery Me thod Room Air Labs Labs: Laboratory Results - last 24 hr 03/17/23 03/17/23 03/18/23 21:01 21:15 09:28 WBC 15.22 H 14.02 H RBC 3.55 L 3.60 L Hgb 11.1 L 11.2 L Hct 34.6 L 36.1 L MCV 98 100 MCH 31 31 MCHC 32 31 L RDW Coeff of [place] 14.6 14.8 Plt Count 297 248 Neut % (Auto) 84.7 H 75.1 H Lymph % (Auto) 6.7 L 14.7 L [place] % (Auto) 7.2 9.3 Eos % (Auto) 0.0 0.1 Baso % (Auto) 0.1 0.1 Neut # (Auto) 12.90 H 10.50 H Lymph # (Auto) 1.00 2.10 [place] # (Auto) 1.10 H 1.30 H Eos # (Auto) 0.00 0.00 Baso # (Auto) 0.00 0.00 Abs Immat Gran (auto) 0.20 0.10 Imm/Tot Granulo (auto) 1.3 0.7 Sodium 137 138 Potassium 4.8 5.2 H Chloride 106 105 Carbon Dioxide 22 24 Anion Gap 9 9 BUN 34 H 31 H Creatinine 1.7 H 1.5 Estimated Creat Clear 36.44 Estimated GFR 41 48 Glucose 127 H 110 Calcium 8.4 8.6 Total Bilirubin 0.2 AST 27 ALT 24 Alkaline Phosphatase 51 C-Reactive Protein 0.9 Total Protein 7.0 Albumin 4.2 POC Troponin I 0.02
[2023-03-18] MEDS: ALBUTEROL INHALER 2 PUFF IH (19:58)
[2023-03-18] MEDS: GABAPENTIN 300 MG CAPSULE PO (19:59)
[2023-03-18] MEDS: CALCIUM CARBONATE 500 MG CHEW PO (20:39)
[2023-03-18] MEDS: SENNOSIDES/DOCUSATE TABLET 1 TAB PO ×2 (20:39→20:40)
--- NOTE | 2023-03-18 22:30 | PC.NURSE ---
End of shift [id number]: patient alert and oriented x 4. Pain to left ribs reported, pain managed with PRN medications and rest. Ambulates with SBA with walker. SOB reported x 1, relieved with albuterol inhaler.
[2023-03-18] MEDS: OMEPRAZOLE 20 MG CAPSULE DR PO (23:29)
[2023-03-19] MEDS: OXYCODONE 5 MG TABLET PO ×2 (02:37→08:47)
[2023-03-19 02:40] VITALS: BP 176/89; PULSE 95; RESP 18; TEMP 36.9; O2SAT 92
--- NOTE | 2023-03-19 04:18 | PC.NURSE ---
Pt rested well this night. Pain controlled. Pt needs encouragement to move.
[2023-03-19] MEDS: ALBUTEROL INHALER 2 PUFF IH (05:20)
[2023-03-19] MEDS: LIDOCAINE 5% PATCH 2 PATCH TRANSDERMA (05:21)
[2023-03-19 06:44] LABS: Basophils Percent Auto 0.1 % (0.0-3.0); Eosinophils Percent Auto 0.1 % (0.0-7.0); Hematocrit 35.9 % (37.0-53.0); Hemoglobin* 11.2 gm/dL (13.5-17.5); Immature Granulocytes Pct Auto 1.2 %; Lymphocytes Percent Auto 14.8 % (20-44); Mean Corpuscular HGB Conc 31 gm/dL (32-36); Mean Corpuscular Hemoglobin 31 pg (26-34); Mean Corpuscular Volume 99 fL (80-100); Monocytes Percent Auto 8.5 % (0.0-11.0); Neutrophils Percent Auto 75.3 % (42.0-72.0); Platelet Count* 264 K/uL (140-440); RDW Coefficient of Variation % 14.7 % (11.5-15.5); Red Blood Count 3.62 m/uL (4.30-5.90); White Blood Count* 14.89 K/uL (4.50-11.00)
[2023-03-19 06:51] LABS: Slide Review Reflex No
[2023-03-19 07:00] LABS: Chloride* 105 mmol/L (96-114); Sodium* 138 mmol/L (135-149)
[2023-03-19 07:01] LABS: Potassium* 4.9 mmol/L (3.6-5.1)
[2023-03-19 07:03] LABS: Anion Gap 12 mEq/L (7-15); Blood Urea Nitrogen* 37 mg/dL (7-30); Carbon Dioxide* 21 mmol/L (20-32); Creatinine* 1.8 mg/dL (0.5-1.5); Est. Creatinine Clearance* 30.37; Estimated Glomerular Filt Rate 39 ml/min
[2023-03-19 07:04] LABS: Calcium* 9.2 mg/dL (8.4-10.6); Glucose* 113 mg/dL (60-115)
[2023-03-19 07:40] VITALS: BP 170/81; PULSE 97; RESP 28; TEMP 36.8; O2SAT 95
[2023-03-19 08:25] VITALS: PULSE 97
[2023-03-19] MEDS: ACETAMINOPHEN 500 MG TABLET 1000 MG PO (08:39)
[2023-03-19] MEDS: lisinopriL 5 MG TABLET PO (08:39)
[2023-03-19] MEDS: SODIUM CHLORIDE 0.9 % (FLUSH) 10 ML SYRINGE 5 ML IVF (08:40)
[2023-03-19] MEDS: predniSONE 10 MG TABLET PO (08:47)
--- NOTE | 2023-03-19 10:16 | P.DS_ITS ---
DS: Providers Provider Date Seen: 03/19/23 Date of admission: 03/18/23 01:49 Primary care physician: Not a Local Provider Admitting Clinician: Na Fajardo MD Consults: OT, PT Attending Physician on discharge: Chasidy Mccullough MD Date of Discharge: 03/19/23 DS: Diagnosis Discharge Diagnosis (1) Rib fractures: Status: Acute Problem details: -s/p slip on icy steps -left rib 9-10 fractures. Of note, remote h/o right rib fractures requiring hospitalization -ED provider discussed with [facility]: recommended admission for therapies and pain management -pain mgmt with Lidocaine patch, scheduled APAP, prn Oxycodone and Cyclobenzaprine; effective -incentive spirometry, Aerobika -PT/OT followed during stay, therapies and patient felt comfortable with d/c home on 03/19/23 (2) COVID-19: Status: Acute Problem details: -recent diagnosis, finished 5 day course of Paxlovid on 03/16/2023, stable on RA and required no specific COVID therapies during stay (3) Lumbar compression fracture: Status: Chronic Problem details: -indeterminate age (though not thought to be acute) (4) HTN (hypertension): Status: Acute Problem details: -continued home dose of Lisinopril during stay (5) CKD (chronic kidney disease), stage III: Status: Chronic Problem details: -creatinine 1.8 on discharge (6) Rheumatoid arthritis: Status: Chronic Problem details: -probable underlying related osteopenia/osteoporosis. Baseline multiple joint pain -continue chronic daily prednisone, home gabapentin. Also receives Simponi infusions (7) COPD (chronic obstructive pulmonary disease): Status: Chronic Problem details: -stable, inhaler as needed (8) Hyperkalemia: Status: Acute Problem details: -potassium 5.2 on admission, normalized during stay (K 4.9 on discharge 03/19/23) DS: Summary Hospital Course Hospital Course: Patient is a pleasant 77-year-old male with history of RA who presented to the hospital after a fall at home, resulting in fractures of L lateral 9-10 ribs. He was admitted for pain control and therapy consultations, did well during stay, and felt comfortable discharging home on 03/19/23. Incidentally had COVID the week prior to admission (completed course of Paxlovid); no specific COVID therapies required during stay. Comorbidities remained stable; details above. Patient discharged home with Rx for Oxycodone and Lidocaine patches on 03/19/23. Status at Discharge Functional status at discharge: independent ambulation Overall status at discharge: patient is progressing back to baseline Time Spent with Patient Time attestation: Total time spent providing and/or coordinating discharge services: Time spent: Greater than 30 minutes Specific discharge activities: Medication management, discharge planning, updates to patient and to by phone Exam Narrative: Exam Narrative: GEN: Alert and oriented, sitting comfortably in bedside chair HEENT: EOMIs bilaterally, no scleral icterus CV: RRR, No concerning murmurs R: LCTA bilaterally without concerning wheezing, air movement adequate, able to breathe deeply during exam Ext: Ulnar deviation bilateral hands, no concerning edema Neuro: Nonfocal Psych: Appropriate Const: Vital Signs, click to edit/add: Vital Signs - 24 hr 03/18/23 15:00 03/18/23 15:00 03/18/23 19:00 Temperature 98.5 F 97.8 F Pulse Rate [Pulse Oximeter] 92 92 105 H Respiratory Rate 20 20 22 Blood Pressure [Le ft Arm] 181/99 H 183/88 H Blood Pressure [Ri ght Arm] Pulse Oximetry 92 93 Oxygen Delivery Me thod Room Air Room Air 03/18/23 23:31 03/18/23 23:33 03/19/23 02:40 Temperature 97.8 F 98.5 F Pulse Rate [Pulse Oximeter] 96 96 95 Respiratory Rate 18 18 Blood Pressure [Le ft Arm] 168/81 H 176/89 H Blood Pressure [Ri ght Arm] Pulse Oximetry 93 92 Oxygen Delivery Me thod Room Air Room Air 03/19/23 07:40 03/19/23 08:25 Temperature 98.3 F Pulse Rate [Pulse Oximeter] 97 97 Respiratory Rate 28 H Blood Pressure [Le ft Arm] Blood Pressure [Ri ght Arm] 170/81 H Pulse Oximetry 95 Oxygen Delivery Me thod DS: Data Data Completed and Pending Labs on day of discharge: Labs from last 24 hours 03/19/23 06:29 WBC 14.89 H RBC 3.62 L Hgb 11.2 L Hct 35.9 L MCV 99 MCH 31 MCHC 31 L RDW Coeff of Dana 14.7 Plt Count 264 Neut % (Auto) 75.3 H Lymph % (Auto) 14.8 L Phillips % (Auto) 8.5 Eos % (Auto) 0.1 Baso % (Auto) 0.1 Neut # (Auto) 11.20 H Lymph # (Auto) 2.20 Phillips # (Auto) 1.30 H Eos # (Auto) 0.00 Baso # (Auto) 0.00 Abs Immat Gran (auto) 0.20 Imm/Tot Granulo (auto) 1.2 Sodium 138 Potassium 4.9 Chloride 105 Carbon Dioxide 21 Anion Gap 12 BUN 37 H Creatinine 1.8 H Estimated Creat Clear 30.37 Estimated GFR 39 Glucose 113 Calcium 9.2 Discharge Plan Discharge Disposition: Home, Self-Care Date of Admission: 03/18/23 01:49 Attending Provider on Discharge: Chasidy Mccullough Primary Care Provider: Provider,Not a Local Condition: Improved Anticipated Discharge Date/Time: 03/19/23 14:00 Discharge Medications: New lidocaine 5 % Adhesive Patch,Medicated 2 patch transdermal Q24H Qty: 30 1RF Rx Instructions: over chest wall (broken ribs) oxycodone 5 mg Tablet 5 mg PO Q4H PRN (Reason: Pain) Qty: 20 0RF Rx Instructions: 1 tab every 4-6 hours as needed for severe pain Continued prednisone 10 mg tablet 10 mg PO DAILY gabapentin 300 mg capsule 300 mg PO HS omeprazole 20 mg capsule,delayed release(DR/EC) 20 mg PO DAILY allopurinol 300 mg tablet 300 mg PO HS lisinopril 5 mg tablet 5 mg PO DAILY albuterol sulfate 90 mcg/actuation HFA aerosol inhaler 2 puff INHALATION Q4H PRN fluticasone propion-salmeterol 500-50 mcg/dose blister with device 1 ea INHALATION BID Discharge Orders: Discharge Order (Routine); Ordered 03/19/23 Ordered By: Chasidy Mccullough Patient Education: Oxycodone, Rapid Release (By mouth), Lidocaine (Into the skin) Additional Instructions: For pain, schedule Tylenol 1000mg three times/day. You can also use the Lidocaine patch (sent to pharmacy) and stronger pain medication (Oxycodone, also sent to Pharmacy). Use the Incentive Spirometer (breathing apparatus) every 2-3 hours at home to prevent pneumonia. See Dr. Ochoa in the next few weeks for a check-in. Activity Level: Activity as Tolerated and No strenuous activity Discharge Diet: Regular Follow Up Appointments: Robert Ochoa [Other] - 03/31/23 9:25 am ([facility] for follow up) Provider,Not a Local [Primary Care Provider] - (please call patient's PCP (Dr. Robert Ochoa at [facility] through [facility] - phone number [phone]) and schedule hospital f/u in 1-2 weeks. Also please find out clinic's fax # and send records to Dr. Ochoa. Thanks!) Forms: [employer] Info Instructions
[2023-03-19 12:10] VITALS: BP 169/77; PULSE 103; RESP 18; TEMP 36.8; O2SAT 91
--- NOTE | 2023-03-19 14:17 | PC.NURSE ---
Pt alert and oriented. Pt had complaints ranging from 0-8; see EMAR for intervention. Pt SBA. Pt had shower with help from OT. Pt 's IV removed and catheter intact. Pt's lidocaine patches were removed during shower. Pt's picked up Pt at discharge.
== END 2023-03-19 13:20 | disposition home or self-care (01) ==
LOC: ED 21:10 → MEDSURG 03-18 01:50
PROVIDERS: Physician Assistant; Admitting Provider Family Medicine; Emergency Provider Family Medicine; Visit Provider Family Medicine
DX: S32.000A Wedge compression fracture of unspecified lumbar vertebra, initial encounter for closed fracture (principal); S22.49XA Multiple fractures of ribs, unspecified side, initial encounter for closed fracture; I10 Essential (primary) hypertension; N18.30 Chronic kidney disease, stage 3 unspecified; J44.9 Chronic obstructive pulmonary disease, unspecified; M06.9 Rheumatoid arthritis, unspecified; U07.1 COVID-19; E87.5 Hyperkalemia
CPT/HCPCS: 36415; 71250; 72125; 74176; 80048; 80053; 84484; 85025; 86140; 96361; 96374; 96375; 97116; 97161; 97165; 97530; 97535; 99284; 99285; A9270; G0378; J2270; J2405; J7050; J7512